=== PATIENT | female | born 1980 | race Caucasian/White ===

== ENCOUNTER 2018-04-18 22:45 | Inpatient (IN) | payer MEDICAID, OTHER ==
--- NOTE | 2018-04-18 23:26 | EDPHY ---
H & P Source: Police, RN/MD Exam Limitations: Clinical condition Time Seen by Provider: 04/18/18 23:25 HPI/ROS: HPI: This is a 37-year-old female who presents with Chief Complaint: M1 hold Location: psych Quality: M1 hold Duration: Unknown Signs and Symptoms: + psychosis, + delusional, no suicidal ideation, no homicidal ideation Timing: Unknown Severity: Severe Context: Patient was brought in by police on M1 hold. Patient reportedly inter lobby of hotel wearing no shoes and speaking"nonsense." Upon contact with the officers patient appeared to have difficulty providing logical or core hearing explanation at how she came to be at the hotel. Patient told officers she had come to hotel looking to democrat "with Magdiel." Patient displayed atypical behavior including no shoes walking around the city all day and no account of where she is from or where she is. Patient is agitated, speaking in the matter and which her gaze was directed to what appeared to be another individual not present. Patient denies recreational drug or alcohol use. Patient is Super mormon and mumbling. Modifying Factors: Comment: ROS: Difficult due to patient's clinical condition MEDICAL/SURGICAL/SOCIAL HISTORY: Difficult due to patient's condition CONSTITUTIONAL: Untidy, mumbling, poor eye contact, adult female, awake and alert, no obvious distress HEENT: Atraumatic and normocephalic, PERRL, EOMI. Nares patent; no rhinorrhea; no nasal mucosal edema. Tympanic membranes clear. Oropharynx clear, no exudate and moist pink mucosa. Airway patent. No lymphadenopathy. No meningismus. Cardiovascular: Normal S1/S2, regular rate, regular rhythm, without murmur rub or gallop. PULMONARY/CHEST: Symmetrical and nontender. Clear to auscultation bilaterally. Good air movement. No accessory muscle usage. ABDOMEN: Soft, nondistended, nontender, no rebound, no guarding, no peritoneal signs, no masses or organomegaly. No CVAT. EXTREMITIES: 2/2 pulses, strength 5/5, no deformities, no clubbing, no cyanosis or edema. NEUROLOGICAL: Passively moving all 4 extremities. Follow simple commands. SKIN: Warm and dry, superficial breakdown noted to bilateral feet and toes; no scott abscess. no erythema. no rash. Good capillary refill. ([place]) Constitutional: Initial Vital Signs Temperature (C) 36.5 C 04/18/18 22:50 Heart Rate 74 04/18/18 22:50 Respiratory Rate 18 04/18/18 22:50 Blood Pressure 137/66 H 04/18/18 22:50 O2 Sat (%) 97 04/18/18 22:50 O2 Delivery Mode Room Air Allergies/Adverse Reactions: No Known Allergies Allergy (Unverified 04/18/18 23:19) Home Medications: Medication Instructions Recorded NK [No Known Home Meds] 04/19/18 Medical Decision Making ED Course/Re-evaluation: 2300: Agree with patient being on M1 hold as she is delusional and gravely disabled. Labs and UDS ordered. Given Zyprexa 5 mg. Patient's skin on her feet show superficial breakdown and maceration. Given tetanus booster. Keflex 500 mg 4 times a day x 7 days ordered. End of Shift. Signed over to Dr. Sanders pending medical clearance and final disposition. This patient was seen under the supervision of my secondary supervising physician. I evaluated care for this patient independently. Discussed this patient with Dr. Sanders who did not see the patient. (Vero Torres) PHYSICIAN DOCUMENTATION: The patient was evaluated and managed by the Physician Radial Arm Saw Operator. My co- signature indicates that I have reviewed this chart and I agree with the findings and plan of care as documented. I am the secondary supervising physician. 7:00 a.m.- The patient has remained stable throughout my shift. She is undergoing a mental health evaluation now. (Cathleen Sanders) Differential Diagnosis: Differential diagnosis includes but is not limited to schizoaffective disorder, schizophrenic manic episode, paranoid schizophrenia, bipolar disorder, intoxicated. (Vero Torres) Other Provider: I assumed care of the patient at 0700. Update at 10:00 a.m.: I am informed the patient has been accepted for inpatient psychiatric hospitalization at [facility]'s inpatient unit by Dr. Arce. I have filled out the EMTALA transfer form. (Lane Arrieta) - Data Points Laboratory Results: Laboratory Results 04/18/18 23:10 04/18/18 23:10 04/19/18 04/18/18 04/18/18 05:05 23:10 23:10 WBC RBC Hgb Hct MCV MCH MCHC RDW Plt Count MPV Neut % (Auto) Lymph % (Auto) Shelby % (Auto) Eos % (Auto) Baso % (Auto) Nucleat RBC Rel Count Absolute Neuts (auto) Absolute Lymphs (auto) Absolute Monos (auto) Absolute Eos (auto) Absolute Basos (auto) Absolute Nucleated RBC Immature Gran % Immature Gran # Sodium 140 mEq/L mEq/L (135-145) Potassium 3.9 mEq/L mEq/L (3.3-5.0) Chloride 99 mEq/L mEq/L (97-110) Carbon Dioxide 22 mEq/l mEq/l (22-31) Anion Gap 19 mEq/L H mEq/L (8-16) BUN 22 mg/dL mg/dL (7-23) Creatinine 0.7 mg/dL mg/dL (0.6-1.0) Estimated GFR > 60 Glucose 77 mg/dL mg/dL (70-100) Calcium 9.1 mg/dL mg/dL (8.5-10.4) Beta HCG, Qual NEGATIVE Urine Opiates Screen NEGATIVE (NEGATIVE) Urine Barbiturates NEGATIVE (NEGATIVE) Ur Phencyclidine Scrn NEGATIVE (NEGATIVE) Ur Amphetamine Screen NEGATIVE (NEGATIVE) U Benzodiazepines Scrn NEGATIVE (NEGATIVE) Urine Cocaine Screen NEGATIVE (NEGATIVE) U Marijuana (THC) Screen NON-NEGATIVE H (NEGATIVE) Ethyl Alcohol < 10 mg/dL mg/dL (0-10) 04/18/18 23:10 WBC 6.95 10^3/uL 10^3/uL (3.80-9.50) RBC 4.38 10^6/uL 10^6/uL (4.18-5.33) Hgb 14.0 g/dL g/dL (12.6-16.3) Hct 41.8 % % (38.0-47.0) MCV 95.4 fL fL (81.5-99.8) MCH 32.0 pg pg (27.9-34.1) MCHC 33.5 g/dL g/dL (32.4-36.7) RDW 13.0 % % (11.5-15.2) Plt Count 212 10^3/uL 10^3/uL (150-400) MPV 10.2 fL fL (8.7-11.7) Neut % (Auto) 72.1 % % (39.3-74.2) Lymph % (Auto) 17.4 % % (15.0-45.0) Shelby % (Auto) 9.2 % % (4.5-13.0) Eos % (Auto) 0.9 % % (0.6-7.6) Baso % (Auto) 0.1 % L % (0.3-1.7) Nucleat RBC Rel Count 0.0 % % (0.0-0.2) Absolute Neuts (auto) 5.01 10^3/uL 10^3/uL (1.70-6.50) Absolute Lymphs (auto) 1.21 10^3/uL 10^3/uL (1.00-3.00) Absolute Monos (auto) 0.64 10^3/uL 10^3/uL (0.30-0.80) Absolute Eos (auto) 0.06 10^3/uL 10^3/uL (0.03-0.40) Absolute Basos (auto) 0.01 10^3/uL L 10^3/uL (0.02-0.10) Absolute Nucleated RBC 0.00 10^3/uL 10^3/uL (0-0.01) Immature Gran % 0.3 % % (0.0-1.1) Immature Gran # 0.02 10^3/uL 10^3/uL (0.00-0.10) Sodium Potassium Chloride Carbon Dioxide Anion Gap BUN Creatinine Estimated GFR Glucose Calcium Beta HCG, Qual Urine Opiates Screen Urine Barbiturates Ur Phencyclidine Scrn Ur Amphetamine Screen U Benzodiazepines Scrn Urine Cocaine Screen U Marijuana (THC) Screen Ethyl Alcohol Medications Given: Cephalexin HCl (Keflex) 500 mg PO Q6 KARMA PRN Reason: Protocol Stop: 04/26/18 00:00 Last Admin: 04/19/18 05:09 Dose: 500 mg Discontinued Medications Diphtheria/Tetanus/Acell Pertussis (Boostrix) 0.5 ml IM .ONCE ONE Stop: 04/18/18 23:29 Last Admin: 04/18/18 23:46 Dose: 0.5 ml Olanzapine (Zyprexa Zydis) 5 mg PO EDNOW ONE Stop: 04/18/18 23:29 Last Admin: 04/19/18 07:05 Dose: Not Given Departure - Departure Disposition: [facility] IP Clinical Impression: Acute schizophrenia-like psychotic disorder Abrasion, foot with infection Qualifiers: Encounter type: initial encounter Laterality: unspecified laterality Qualified Code(s): S90.819A - Abrasion, unspecified foot, initial encounter Condition: Good Referrals: NONE *PRIMARY CARE P,. [Primary Care Provider] - As per Instructions
[2018-04-18] MEDS ORDERED: TDAP ADULT 0.5 ML INJ (BOOSTRIX) IM ONE (23:28)
[2018-04-18] MEDS ORDERED: OLANZapine DISINTEGR 5 MG TAB PO ONE (23:28)
[2018-04-18 23:44] LABS: PLATELET COUNT 212 10^3/uL (150-400)
[2018-04-18] MEDS: CEPHALEXIN 500 MG CAP PO SCH (23:47)
[2018-04-19] MEDS: CEPHALEXIN 500 MG CAP PO SCH ×5 (05:09→23:59)
[2018-04-19] MEDS ORDERED: LORazepam 0.5 MG TAB PO PRN (19:14)
[2018-04-19] MEDS ORDERED: NICOTINE POLACRILEX 2 MG GUM B PRN (19:14)
[2018-04-19] MEDS ORDERED: MAG HYDROX/AL HYDROX/SIMETH 30 ML UDCUP PO PRN (19:14)
[2018-04-19] MEDS ORDERED: OLANZapine DISINTEGR 10 MG TAB PO PRN (19:14)
[2018-04-19] MEDS ORDERED: ACETAMINOPHEN 325 MG TAB PO PRN (19:14)
[2018-04-19] MEDS ORDERED: MAGNESIUM HYDROXIDE 30 ML UDCUP PO PRN (19:14)
[2018-04-20] MEDS: CEPHALEXIN 500 MG CAP PO SCH ×3 (05:48→18:22)
[2018-04-20] MEDS ORDERED: hydrOXYzine HCL 25 MG TAB PO PRN (13:40)
--- NOTE | 2018-04-20 14:28 | BCON ---
[f rep st] BEHAVIORAL HEALTH CONSULTATION INTERNAL MEDICINE CONSULTATION DATE OF CONSULTATION: 04/20/2018 REFERRING PHYSICIAN: Josey Arce MD REASON FOR REFERRAL: Medical clearance for inpatient behavioral health stay. HISTORY OF PRESENT ILLNESS: This patient came to the emergency department brought by police 2 days ago. She had been found in the lobby of a hotel, wearing no shoes and speaking nonsense. She was evaluated by the mental health team and admitted for further psychiatric care. She currently is without any acute complaints. In the emergency department, it was noted that she had abrasions to her feet from walking barefoot, and she was given antibiotics. She is concerned that she has metal in 1 foot and glass in the other foot. PAST MEDICAL HISTORY: She denies any history of medical illnesses. PAST SURGICAL HISTORY: She has had a section. MEDICATIONS: She was taking no medications. SOCIAL HISTORY: She is homeless. She reports she has had a variety of jobs and is looking for work right now but does not note any specific career. Her daughter lives with her sister. She is a nonsmoker. FAMILY HISTORY: She reports her parents are . Her father had throat cancer, and her mother had cirrhosis. REVIEW OF SYSTEMS: She thinks she has lost a few pounds in the time that she has been homeless. She denies fevers, chills, cough, dyspnea, nausea, vomiting , constipation, diarrhea, dysuria, urinary frequency, joint pain or joint swelling. She is aware of abrasions on her feet. Otherwise, a 10-point review of systems is negative. PHYSICAL EXAM: VITAL SIGNS: Blood pressure is 119/82. Heart rate is 88. Respiratory rate is 15. Oxygen saturation is 96% on room air. Temperature is 36.8 degrees centigrade. Her weight is 61.2 kg for a body mass index of 23.2. GENERAL: This is a well-nourished, well-developed woman, lying in bed, easily awakened, cooperative, and in no acute distress. HEENT: Extraocular movements are intact. Pupils are equal, round, reactive to light. Mucous membranes are moist. Dentition is in good condition. She has a crowded airway, Mallampati class 3. NECK: Supple. HEART: There is a regular rate and rhythm, with no murmurs, rubs, or gallops. LUNGS: Clear to auscultation bilaterally. ABDOMEN : Benign. EXTREMITIES: There is no cyanosis, clubbing, or edema. NEUROLOGIC : She is alert. Orientation was not checked. Cranial nerves 2-12 are grossly intact. There is no focal weakness, and sensation is intact to light touch. SKIN: There is an approximately dime-sized abrasion on her right plantar foot just proximal to the metatarsal heads, with mild surrounding erythema. There is no evidence of any foreign bodies, at least from a surface inspection. On her left foot, she has some blackish discoloration on the posterior aspect of the plantar heel, again, without any obvious foreign body or lacerations. LABORATORY STUDIES: CBC was overall within normal limits. Serum chemistry revealed normal renal function and electrolytes, but for a very slight anion gap at 19. Otherwise, renal function and electrolytes were within normal limits. Beta hCG was negative for . Toxicology screen in the serum was negative for ethyl alcohol, and in the urine was non-negative for THC. ASSESSMENT/RECOMMENDATIONS: 1. Mental health issues pending further evaluation and management per Psychiatry and the mental health team. 2. Abrasion to the right foot. Unclear whether or not there is cellulitis. It may well be improved from when initially assessed 2 days ago in the emergency department. Will continue a total of a 5-day course and then discontinue. I see no medical contraindications to this patient's continued stay in the inpatient behavioral health unit or to any psychiatric medications or procedures. Thank you very much for including me in the care of this patient and please do not hesitate to contact me or the hospitalist service should there be need for further medical evaluation. /[id number]/MODL MTDD
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
[2018-04-20] MEDS ORDERED: PRAZOSIN HCL 1 MG CAP PO SCH (21:00)
[2018-04-21] MEDS: CEPHALEXIN 500 MG CAP PO SCH ×3 (00:55→12:14)
[2018-04-21 06:41] VITALS: BP 102/75
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
--- NOTE | 2018-06-01 13:31 | GPROG ---
[f rep st] PROGRESS NOTE PSYCHIATRIC DISCHARGE ORDER: The patient was discharged on April 21, 2018. /[id number]/MODL
== END 2018-04-21 12:25 | disposition home or self-care (01) | DRG 897 ==
LOC: BBEH 04-19 15:45
PROVIDERS: ADMIT Psychiatry & Neurology Behavioral Neurology & Neuropsychiatry
DX: F12.159 Cannabis abuse with psychotic disorder, unspecified (principal); F43.10 Post-traumatic stress disorder, unspecified; R94.5 Abnormal results of liver function studies; L03.115 Cellulitis of right lower limb; F34.0 Cyclothymic disorder; Z91.419 Personal history of unspecified adult abuse; Z59.0 Homelessness
CPT/HCPCS: 80305; G0480